=== PATIENT | male | born 1985 | race African-American/Black ===

== ENCOUNTER 2017-03-05 22:23 | Emergency (ER) | payer OTHER, MEDICAID ==
[~2017-03-05] VITALS: Ht 165.1 cm; Wt 138.5 kg
[~2017-03-05 22:23] MED LIST: ADVAIR; LEVPEN SQ; [UNRECOGNIZED DRUG - OTHER]
[2017-03-06] MEDS ORDERED: IBUPROFEN 600MG TABLET PO ONE (01:15)
[2017-03-06] MEDS ORDERED: SODIUM CHLORIDE 0.9% 1,000 ML IV ONE (02:08)
[2017-03-06] MEDS ORDERED: ALBUTEROL (0.083%) 2.5MG/3ML NEB HHN STA (02:45)
[2017-03-06] MEDS ORDERED: AZITHROMYCIN 500 MG TABLET PO STA (02:45)
[2017-03-06] MEDS ORDERED: PREDNISONE 20MG TABLET PO STA (02:45)
[2017-03-06] MEDS ORDERED: IPRATROPIUM BROMIDE (0.02%) 0.5MG/2.5ML NEB HHN STA (02:45)
[2017-03-06 04:49] VITALS: BP 153/76
== END 2017-03-06 04:51 | disposition home or self-care (01) ==
LOC: ER 22:23
DX: J06.9 Acute upper respiratory infection, unspecified (principal); I10 Essential (primary) hypertension; E11.9 Type 2 diabetes mellitus without complications; J45.909 Unspecified asthma, uncomplicated; D57.3 Sickle-cell trait; Z88.5 Allergy status to narcotic agent; Z79.4 Long term (current) use of insulin
CPT/HCPCS: 71010; 87804; 93005; 94640; 96360; 96361; 99285; J7030; J7512; J7611

== ENCOUNTER 2017-04-24 09:31 | Emergency (ER) | payer OTHER, MEDICAID ==
[~2017-04-24] VITALS: Ht 165.1 cm; Wt 17.0 kg
[2017-04-24] MEDS ORDERED: METHYLPREDNISOLONE SOD SUCC 125 MG/2 ML VIAL IV ONE (11:00)
[2017-04-24] MEDS ORDERED: ALBUTEROL (0.5%) 2.5MG/0.5ML NEB HHN ONE (11:00)
[2017-04-24 11:07] LABS: BASOPHILS % 0.5 % (0.0-2.0); EOSINOPHILS % 2.1 % (0.0-5.0); HEMATOCRIT. 42.2 % (42.0-52.0); HEMOGLOBIN. 13.6 g/dL (14.0-18.0); LYMPHOCYTES % 10.9 % (20.0-50.0); MEAN CORPUSCULAR HEMOGLOBIN 24.5 pg (28.0-32.0); MEAN CORPUSCULAR VOLUME 75.8 fL (80.0-94.0); MONOCYTES % 8.6 % (2.0-8.0); NEUTROPHILS % 77.9 % (40.0-76.0); PLATELET 214 x1000/uL (130-400); RED BLOOD CELL COUNT 5.57 mill/uL (4.7-6.1); RED CELL DISTRIBUTION WIDTH 14.7 % (11.6-14.6)
[2017-04-24 11:08] LABS: CHLORIDE 103 mEq/L (98-107)
[2017-04-24 11:09] LABS: INR 1.1
[2017-04-24 11:16] LABS: CARBON DIOXIDE 29 mEq/L (21-32)
[2017-04-24] MEDS ORDERED: ALBUTEROL (0.083%) 2.5MG/3ML NEB ONE (11:57)
[2017-04-24] MEDS ORDERED: ALBUTEROL (0.083%) 2.5MG/3ML NEB HHN ONE (12:04)
[2017-04-24 12:59] VITALS: BP 138/70
[2017-04-24] MEDS ORDERED: IPRATROPIUM/ALBUTEROL 0.5-3(2.5)MG/3ML NEB HHN ONE (13:00)
== END 2017-04-24 13:50 | disposition home or self-care (01) ==
LOC: ER 09:44
DX: J45.901 Unspecified asthma with (acute) exacerbation (principal); E11.9 Type 2 diabetes mellitus without complications; I10 Essential (primary) hypertension; Z79.4 Long term (current) use of insulin; Z88.5 Allergy status to narcotic agent
CPT/HCPCS: 36415; 71045; 80053; 85025; 85610; 87040; 94640; 96374; 99285; J2930; J7611